=== PATIENT | female | born 1955 | race Caucasian/White ===

== ENCOUNTER 2018-07-28 11:06 | Outpatient (CLI) | payer MEDICARE, OTHER | END 2018-07-28 11:07 | disposition home or self-care (01) | LOC: BICMAMMO 11:06 | PROVIDERS: ATTEND Family Medicine | DX: Z12.31 Encounter for screening mammogram for malignant neoplasm of breast (principal) | CPT/HCPCS: 77063; 77067 ==

== ENCOUNTER 2018-10-07 08:46 | Outpatient (CLI) | payer MEDICARE, OTHER ==
--- NOTE | 2018-10-07 10:01 | BD ---
DEXA BONE DENSITY STUDY: Date: 10/07/18 HISTORY: Osteopenia. FINDINGS: Lumbar Spine: BMD (g/cm2) L1 0.920 T-Score: -0.6 L2 1.044 T-Score: 0.1 L3 1.050 T-Score: -0.3 L4 1.079 T-Score: 0.2 L1-L4 1.029 T-Score: -0.2 Left Femoral Neck: 0.561 T-Score: -2.6 Total Femur: 0.764 T-Score: -1.5 IMPRESSION: Osteoporosis. This patient has between a 6-7x increased risk for fracture when compared with young pa tients with normal bone mineral density. POS: [facility]
== END 2018-10-07 08:47 | disposition home or self-care (01) ==
LOC: BICMAMMO 08:46
PROVIDERS: ATTEND Family Medicine
DX: M85.80 Other specified disorders of bone density and structure, unspecified site (principal); M81.0 Age-related osteoporosis without current pathological fracture; Z78.0 Asymptomatic menopausal state
CPT/HCPCS: 77080

== ENCOUNTER 2023-01-06 09:25 | Outpatient (CLI) | payer MEDICARE, OTHER | END 2023-01-06 09:26 | disposition home or self-care (01) | LOC: BICRAD 09:25 | PROVIDERS: ATTEND Internal Medicine Rheumatology | DX: M17.0 Bilateral primary osteoarthritis of knee (principal) | CPT/HCPCS: 73565 ==